=== PATIENT | female | born 1965 | race African-American/Black ===

== ENCOUNTER 2021-06-12 08:35 | Emergency (ER) | payer OTHER ==
[~2021-06-12] VITALS: Ht 157.5 cm; Wt 45.0 kg
[2021-06-12 09:39] LABS: CLARITY URINE CLEAR (CLEAR); COLOR URINE YELLOW (YELLOW); KETONES URINE TRACE (NEGATIVE); LEUKOCYTE ESTERASE URINE NEGATIVE (NEGATIVE); NITRITE URINE NEGATIVE (NEGATIVE); OCCULT BLOOD URINE 3+ (NEGATIVE); PH URINE 6.5 (4.5-8.0); PROTEIN URINE 1+ (NEGATIVE); SPECIFIC GRAVITY URINE 1.026 (1.005-1.030); UROBILINOGEN URINE 0.2 E.U./dL (0.2-1.0)
[2021-06-12] MEDS ORDERED: ONDANSETRON HCL 4MG/2ML INJ IV NR (10:00)
[2021-06-12] MEDS ORDERED: SODIUM CHLORIDE 0.9% 1,000 ML IV ONE (10:00)
[2021-06-12] MEDS ORDERED: MORPHINE SULFATE 4 MG/ML CPJ (NOT FOR IM USE) IV NR (10:00)
[2021-06-12 10:28] LABS: BASOPHILS % 0.7 % (0.0-2.0); EOSINOPHILS % 0.1 % (0.0-5.0); HEMATOCRIT. 38.2 % (36.0-48.0); HEMOGLOBIN. 12.3 g/dL (12.0-16.0); LYMPHOCYTES % 16.4 % (20.0-50.0); MEAN CORPUSCULAR HEMOGLOBIN 27.1 pg (28.0-32.0); MEAN CORPUSCULAR VOLUME 84.2 fL (81.0-99.0); MEAN PLATELET VOLUME 9.6 fl (7.4-10.4); MONOCYTES % 4.9 % (2.0-8.0); NEUTROPHILS % 77.9 % (40.0-76.0); PLATELET 216 x1000/uL (130-400); RED BLOOD CELL COUNT 4.53 mill/uL (4.2-5.4); RED CELL DISTRIBUTION WIDTH 14.5 % (11.6-14.6)
[2021-06-12 10:34] LABS: CHLORIDE 106 mEq/L (98-107)
[2021-06-12] MEDS ORDERED: KETOROLAC 15MG/ML VIAL IV NR (11:15)
[2021-06-12] MEDS ORDERED: IOHEXOL-300 100 ML BOTTLE ONE (11:38)
[2021-06-12] MEDS ORDERED: HYDR-4001 MT (11:42)
[2021-06-12] MEDS ORDERED: TAMS-11 MT (11:43)
[2021-06-12] MEDS ORDERED: ONDA4TAB5 MT (11:43)
[2021-06-12 12:06] VITALS: BP 155/85
== END 2021-06-12 12:09 | disposition home or self-care (01) ==
LOC: ER 08:35
DX: N13.2 Hydronephrosis with renal and ureteral calculous obstruction (principal); I10 Essential (primary) hypertension
CPT/HCPCS: 36415; 74177; 80053; 81003; 81025; 83605; 85025; 96361; 96374; 96375; 99285; J1885; J2270; J2405; Q9967

== ENCOUNTER 2022-04-04 19:35 | Emergency (ER) | payer SELFPAY ==
[~2022-04-04] VITALS: Ht 157.5 cm; Wt 44.0 kg
[~2022-04-04 19:35] MED LIST: HYDR-4001 MT; ONDA4TAB5 MT; TAMS-11 MT
[2022-04-04 20:39] VITALS: BP 122/66
[2022-04-05] MEDS ORDERED: IBUPROFEN 600MG TABLET PO ONE (01:45)
[2022-04-05] MEDS ORDERED: IBUP-2029 MT (03:10)
== END 2022-04-05 03:45 | disposition home or self-care (01) ==
LOC: ER 19:35
DX: S83.8X2A Sprain of other specified parts of left knee, initial encounter (principal); S86.812A Strain of other muscle(s) and tendon(s) at lower leg level, left leg, initial encounter; Y93.01 Activity, walking, marching and hiking; X58.XXXA Exposure to other specified factors, initial encounter; Y92.89 Other specified places as the place of occurrence of the external cause
CPT/HCPCS: 29505; 73562; 99283; L1830